=== PATIENT | female | born 1995 | race American Indian/Alaskan Native ===

== ENCOUNTER 2017-07-25 20:30 | Observation (INO) | payer OTHER ==
[2017-07-25 20:30] VITALS: BMI 35.2
[2017-07-25] MEDS ORDERED: Sodium Chloride 0.9% 1,000 ML IV STA (22:31)
--- NOTE | 2017-07-25 22:34 | ED PDOC ---
HPI: Abdomen Time Seen by Provider: 07/25/17 22:27 Chief Complaint (Nursing): Abdominal Pain History Per: Patient Onset/Duration Of Symptoms: Days (4) Current Symptoms Are (Timing): Still Present Severity: Mild Pain Scale Rating Of: 2 Location Of Pain/Discomfort: Epigastric Associated Symptoms: Nausea, Vomiting, Diarrhea Exacerbating Factors: None Alleviating Factors: None Additional Complaint(s): Epigastric abd pain assoc with nausea vomiting and diarrhea x 4 days. Denies fever. No blood in stools. No dysuria or frequency Past Medical History Vital Signs: Last Vital Signs Temp 98.5 F 07/25/17 20:52 Pulse 70 07/25/17 20:52 Resp 16 07/25/17 20:52 BP 128/66 07/25/17 20:52 Pulse Ox 99 07/25/17 22:34 - Medical History PMH: No Chronic Diseases - Surgical History Surgical History: - Family History Family History: States: Hypertension - Home Medications Home Medications: Ambulatory Orders Medication Instructions Recorded Pnv with Ca,No.72/Iron/FA 1 tab PO DAILY #20 tab 02/12/15 [ Vitamin Plus Low Iron] Ibuprofen [Motrin Tab] 600 mg PO Q6 PRN #0 tab 03/07/15 oxyCODONE/Acetaminophen [Percocet 1 tab PO Q6 #10 tab 03/07/15 5/325 mg Tab] Clindamycin [Cleocin] 300 mg PO TID #30 cap 03/19/15 Oxycodone HCl/Acetaminophen 1 tab PO Q6 PRN #10 tab 03/19/15 [Percocet 325 mg-5 mg] Ibuprofen [Motrin] 600 mg PO TID 7 Days tab 01/21/16 Nitrofurantoin Macrocrystals 100 mg PO BID #10 cap 01/21/16 [Macrobid] Dicyclomine [Bentyl] 20 mg PO Q6 PRN #12 tab 06/23/16 Famotidine [Pepcid] 40 mg PO DAILY #10 tab 06/23/16 Ibuprofen [Motrin] 600 mg PO TID PRN #30 tab 06/23/16 Nitrofurantoin Macrocrystals 100 mg PO BID #14 cap 06/23/16 [Macrobid] Ketorolac Tromethamine [Toradol] 10 mg PO BID #10 tab 09/07/16 - Allergies Allergies/Adverse Reactions: Allergies Allergy/AdvReac Type Severity Reaction Status Date / Time No Known Allergies Allergy Verified 09/07/16 18:41 Review of Systems ROS Statement: Except As Marked, All Systems Reviewed And Found Negative Constitutional: Negative for: Fever Gastrointestinal: Positive for: Nausea, Vomiting, Abdominal Pain, Diarrhea Genitourinary Female: Negative for: Dysuria, Frequency Physical Exam - Reviewed Nursing Documentation Reviewed: Yes Vital Signs Reviewed: Yes - Physical Exam Appears: Positive for: Non-toxic, No Acute Distress Head Exam: Positive for: ATRAUMATIC, NORMAL INSPECTION, NORMOCEPHALIC Skin: Positive for: Normal Color, Warm, DRY Eye Exam: Positive for: EOMI, Normal appearance, PERRL ENT: Positive for: Normal ENT Inspection Neck: Positive for: Normal, Painless ROM Cardiovascular/Chest: Positive for: Regular Rate, Rhythm Respiratory: Positive for: CNT, Normal Breath Sounds Gastrointestinal/Abdominal: Positive for: Bowel Sounds, Soft, Tenderness ( Epigastric) Back: Positive for: Normal Inspection Extremity: Positive for: Normal ROM Neurologic/Psych: Positive for: Alert, Oriented - Laboratory Results Result Diagrams: 07/25/17 23:22 07/25/17 23:22 - ECG O2 Sat by Pulse Oximetry: 99 Disposition - Clinical Impression Clinical Impression: Abdominal pain, Anemia, Urinary tract infection - Patient ED Disposition Is Patient to be Admitted: Yes - Disposition Disposition Time: 00:19 Condition: FAIR Forms: [facility] (Romanian) - Pt Status Changed To: Hospital Disposition Of: Inpatient - Admit Certification Admit to Inpatient:: After my assessment, the patient will require hospitalization for at least two midnights. This is because of the severity of symptoms shown, intensity of services needed, and/or the medical risk in this patient being treated as an outpatient. - POA Present On Arrival: None
[2017-07-25 23:26] LABS: BASO # 0.1 K/uL (0.0-0.2); BASO % 2.2 % (0.0-2.0); EOS # 0.1 K/uL (0.0-0.7); HEMOGLOBIN 7.2 g/dL (12.0-16.0); LYMPH # 2.5 K/uL (1.0-4.3); LYMPH % 49.6 % (20.0-40.0); MEAN CELL VOLUME 61.8 fl (81.0-99.0); MEAN CORPUSCULAR HEMOGLOBIN 17.3 pg (27.0-31.0); MEAN CORPUSCULAR HGB CONC 27.9 g/dL (33.0-37.0); MEAN PLATELET VOLUME 8.6 fl (7.2-11.7); MONO # 0.5 K/uL (0.0-0.8); NEUT # 1.9 K/uL (1.8-7.0); NEUT % 37.2 % (50.0-75.0); NRBC % 0.1 % (0.0-0.0); RBC 4.14 Mil/uL (3.80-5.20); RED CELL DISTRIBUTION WIDTH 19.9 % (11.5-14.5)
[2017-07-25 23:38] LABS: ALB/GLOB RATIO 1.2 (1.0-2.1); ALBUMIN 4.3 g/dL (3.5-5.0); ALT/SGPT 29 U/L (9-52); AST/SGOT 28 U/L (14-36); BLOOD UREA NITROGEN 11 mg/dl (7-17); CALCIUM 9.2 mg/dL (8.4-10.2); GFR AFRICAN-AMERICAN > 60; GFR NON-AFRICAN AMERICAN > 60
--- NOTE | 2017-07-26 01:35 | CT ---
EXAM: CT Abdomen and Pelvis Without Intravenous Contrast CLINICAL HISTORY: 21 years old, female; Pain; Abdominal pain; Localized; Lower; Prior surgery; Surgery date: 6+ months; Surgery type: ; Additional info: Anemia lower abd pain TECHNIQUE: Axial computed tomography images of the abdomen and pelvis without intravenous contrast. All CT scans at this facility use one or more dose reduction techniques, viz.: automated exposure control; ma/kV adjustment per patient size (including targeted exams where dose is matched to indication; i.e. head); or iterative reconstruction technique. Coronal and sagittal reformatted images were created and reviewed. COMPARISON: No relevant prior studies available. FINDINGS: Lower thorax: No acute findings. ABDOMEN: Liver: Unremarkable. Gallbladder and bile ducts: Unremarkable. No calcified stones. No ductal dilation. Pancreas: Unremarkable. No ductal dilation. Spleen: Unremarkable. No splenomegaly. Adrenals: Unremarkable. No mass. Kidneys and ureters: Unremarkable. No obstructing stones. No hydronephrosis. Stomach and bowel: There is no wall thickening or pericolonic stranding to suggest colitis. No obstruction. Appendix: The appendix is top normal to mildly prominent measuring 6-7 mm. There is no evidence of adjacent inflammatory stranding. PELVIS: Bladder: Unremarkable. No stones. Reproductive: Unremarkable as visualized. ABDOMEN and PELVIS: Intraperitoneal space: Unremarkable. No free air. No significant fluid collection. Bones/joints: No acute fracture. No dislocation. Soft tissues: Unremarkable. Vasculature: Unremarkable. No abdominal aortic aneurysm. Lymph nodes: Unremarkable. No enlarged lymph nodes. IMPRESSION: No acute intra-abdominal pelvic abnormality.
[2017-07-26] MEDS ORDERED: Influenza Vaccine 18yr & older 0.5 ML/45 MCG SYR IM ONE (16:52)
--- NOTE | 2017-07-26 19:12 | CP.PCM.HP ---
History of Present Illness - History of Present Illness History of Present Illness: 21 yr old F presented to ED with complaint epigastric abdominal pain, nausea, vomiting and diarrhea for 4 days. PMHx includes iron deficiency anemia secondary to menorrhagia with no history of blood transfusion. Denies chest pain, SOB, weakness or dizziness. Patient reports she noticed 1 episode of blood on tissue paper after a bowel movement this week. Denies dysuria or frequency. No personal or family hx of blood disorders or blood clots. LMP: 07/02/17, lasts 1 week (10 saturated sanitary napkins per day) PMD: [place] PMHx: iron deficiency anemia secondary to menorrhagia SurgHx: 02/2015 FMHx: mother is healthy, father is healthy, younger brother has a heart defect SocHx: denies tobacco, occasional Etoh, last marijuana use 3 days ago; lives with mother and 2yr old daughter; works as a hairdresser Medications: see medication reconciliation Allergies: NKDA Present on Admission - Present on Admission Any Indicators Present on Admission: No History of DVT/PE: No History of Uncontrolled Diabetes: No Urinary Catheter: No Decubitus Ulcer Present: No History Surgical Site Infection Following: None Review of Systems - Review of Systems All systems: reviewed and no additional remarkable complaints except (for what is mentioned in the HPI) - Constitutional Constitutional: absent: Chills, Fever, Weight Loss, Weakness - EENT Eyes: absent: Change in Vision Ears: absent: Ear Discharge Nose/Mouth/Throat: absent: Nasal Congestion, Nasal Discharge - Cardiovascular Cardiovascular: absent: Chest Pain, Dyspnea - Respiratory Respiratory: absent: Hemoptysis - Gastrointestinal Gastrointestinal: Abdominal Pain (epigastric), Diarrhea, Nausea, Vomiting - Genitourinary Genitourinary: absent: Difficulty Urinating, Dysuria - Reproductive: Female Reproductive:Female: Heavy Menses (every month) - Musculoskeletal Musculoskeletal: absent: Muscle Weakness - Integumentary Integumentary: absent: Bleeding Lesions - Neurological Neurological: absent: Dizziness, Headaches - Psychiatric Psychiatric: absent: Anxiety - Hematologic/Lymphatic Hematologic: absent: Easy Bleeding, Easy Bruising Past Patient History - Past Medical History & Family History Past Medical History?: No - Past Social History Smoking Status: Never Smoked - CARDIAC Hx Cardiac Disorders: No - MUSCULOSKELETAL/RHEUMATOLOGICAL Hx Falls: No - PSYCHIATRIC Hx Substance Use: Yes (marijuana, 3 months ago) - SURGICAL HISTORY Hx Surgeries: Yes Hx Section: Yes - ANESTHESIA Hx Anesthesia: Yes Hx Anesthesia Reactions: No Hx Malignant Hyperthermia: No Has any member of the family had a problem w/ anesthesia?: No Meds Allergies/Adverse Reactions: Allergies Allergy/AdvReac Type Severity Reaction Status Date / Time No Known Allergies Allergy Verified 09/07/16 18:41 Physical Exam - Constitutional Appears: No Acute Distress (obese) - Head Exam Head Exam: ATRAUMATIC, NORMOCEPHALIC - Eye Exam Eye Exam: EOMI, PERRL Additional comments: pale conjunctiva - ENT Exam ENT Exam: Mucous Membranes Moist - Neck Exam Neck exam: Positive for: Full Rom - Respiratory Exam Respiratory Exam: Clear to Auscultation Bilateral, NORMAL BREATHING PATTERN - Cardiovascular Exam Cardiovascular Exam: REGULAR RHYTHM, +S1, +S2 - GI/Abdominal Exam GI & Abdominal Exam: Normal Bowel Sounds, Soft (obese). absent: Tenderness - Extremities Exam Extremities exam: Positive for: full ROM. Negative for: calf tenderness, pedal edema - Neurological Exam Neurological exam: Alert, CN II-XII Intact, Oriented x3 - Psychiatric Exam Psychiatric exam: Normal Affect, Normal Mood - Skin Skin Exam: Dry, Intact, Warm Results - Vital Signs Recent Vital Signs: Last Vital Signs Temp 98.5 F 07/26/17 18:25 Pulse 63 07/26/17 18:25 Resp 17 07/26/17 18:25 BP 101/64 07/26/17 18:25 Pulse Ox 100 07/26/17 18:25 - Labs Result Diagrams: 07/25/17 23:22 07/25/17 23:22 Labs: Laboratory Results - last 24 hr 07/25/17 07/25/17 07/26/17 23:22 23:22 01:29 WBC 5.0 RBC 4.14 Hgb 7.2 L Hct 25.6 L MCV 61.8 L D MCH 17.3 L MCHC 27.9 L RDW 19.9 H Plt Count 253 MPV 8.6 Neut % (Auto) 37.2 L Lymph % (Auto) 49.6 H [place] % (Auto) 10.0 Eos % (Auto) 1.0 Baso % (Auto) 2.2 H Neut # 1.9 Lymph # 2.5 [place] # 0.5 Eos # 0.1 Baso # 0.1 Sodium 140 Potassium 4.2 Chloride 105 Carbon Dioxide 26 Anion Gap 13 BUN 11 Creatinine 0.8 Est GFR ( Amer) > 60 Est GFR (Non-Af Amer) > 60 Random Glucose 100 Calcium 9.2 Total Bilirubin 0.2 AST 28 ALT 29 Alkaline Phosphatase 38 Total Protein 7.8 Albumin 4.3 Globulin 3.5 Albumin/Globulin Ratio 1.2 Blood Type A POSITIVE Antibody Screen Negative Crossmatch See Detail BBK History Checked Patient has bt Assessment & Plan - Assessment and Plan (Free Text) Assessment: 21 yr old F admitted for abdominal pain and acute on chronic iron deficiency anemia. -admit to med/surg -transfuse 2 units leukocyte reduced pRBC's -NPO now, advance to regular diet as tolerated -ferrous sulfate 325mg PO TID, colace 100mg PO BID -f/u UA, urine culture, CBC, FOBT, CMP -DVT prophylaxis with SCD's - Date & Time Date: 07/26/17 Time: 08:45
[2017-07-27 06:30] LABS: HEMOGLOBIN 10.3 g/dL (12.0-16.0); MEAN CELL VOLUME 66.8 fl (81.0-99.0); MEAN CORPUSCULAR HEMOGLOBIN 19.7 pg (27.0-31.0); MEAN CORPUSCULAR HGB CONC 29.4 g/dL (33.0-37.0); RBC 5.25 Mil/uL (3.80-5.20); RED CELL DISTRIBUTION WIDTH 24.6 % (11.5-14.5); WHITE BLOOD COUNT 6.9 K/uL (4.8-10.8)
[2017-07-27 07:57] VITALS: BP 99/63; PULSE 65; RESP 18; TEMP 98.1; O2SAT 98
[2017-07-27] MEDS ORDERED: Pantoprazole 40 mg EC Tab PO SCH (09:00)
[2017-07-27 11:06] LABS: SQUAMOUS EPITHIAL 14 /hpf (0-5); URINE BACTERIA RARE (<OCC); URINE BILIRUBIN NEGATIVE (NEGATIVE); URINE BLOOD NEGATIVE (NEGATIVE); URINE CLARITY CLOUDY (Clear); URINE COLOR YELLOW (YELLOW); URINE GLUCOSE (UA) NEG (Normal); URINE LEUKOCYTE ESTERASE LARGE Leu/uL (Negative); URINE NITRATE NEGATIVE (NEGATIVE); URINE PROTEIN NEGATIVE (NEGATIVE); URINE UROBILINOGEN 0.2-1.0 mg/dL (0.2-1.0)
--- NOTE | 2017-07-27 22:52 | CP.PCM.DIS ---
Provider - Provider Date of Admission: 07/26/17 00:17 Attending physician: Yohan Dai MD Primary care physician: Dr. Montoya Time Spent in preparation of Discharge (in minutes): 30 Diagnosis - Discharge Diagnosis (1) Iron deficiency anemia Status: Resolved Priority: Low (2) Abdominal discomfort Status: Resolved Priority: Low (3) UTI (urinary tract infection) Status: Acute Priority: Low Hospital Course - Lab Results Lab Results: Micro Results 07/26/17 00:24 Urine,Clean Catch Urine Culture - Final 10-50,000 CFU/ML. MULTIPLE SPECIES. PROBABLE CONTAMINATION. Most Recent Lab Values WBC 6.9 K/uL (4.8-10.8) 07/27/17 06:05 RBC 5.25 Mil/uL (3.80-5.20) H 07/27/17 06:05 Hgb 10.3 g/dL (12.0-16.0) L D 07/27/17 06:05 Hct 35.1 % (34.0-47.0) 07/27/17 06:05 MCV 66.8 fl (81.0-99.0) L D 07/27/17 06:05 MCH 19.7 pg (27.0-31.0) L 07/27/17 06:05 MCHC 29.4 g/dL (33.0-37.0) L 07/27/17 06:05 RDW 24.6 % (11.5-14.5) H 07/27/17 06:05 Plt Count 248 K/uL (130-400) 07/27/17 06:05 MPV 8.6 fl (7.2-11.7) 07/25/17 23:22 Neut % (Auto) 37.2 % (50.0-75.0) L 07/25/17 23:22 Lymph % (Auto) 49.6 % (20.0-40.0) H 07/25/17 23:22 [place] % (Auto) 10.0 % (0.0-10.0) 07/25/17 23:22 Eos % (Auto) 1.0 % (0.0-4.0) 07/25/17 23:22 Baso % (Auto) 2.2 % (0.0-2.0) H 07/25/17 23:22 Neut # 1.9 K/uL (1.8-7.0) 07/25/17 23:22 Lymph # 2.5 K/uL (1.0-4.3) 07/25/17 23:22 [place] # 0.5 K/uL (0.0-0.8) 07/25/17 23:22 Eos # 0.1 K/uL (0.0-0.7) 07/25/17 23:22 Baso # 0.1 K/uL (0.0-0.2) 07/25/17 23:22 Sodium 140 mmol/l (132-148) 07/25/17 23:22 Potassium 4.2 MMOL/L (3.6-5.0) 07/25/17 23:22 Chloride 105 mmol/L (98-107) 07/25/17 23:22 Carbon Dioxide 26 mmol/L (22-30) 07/25/17 23:22 Anion Gap 13 (10-20) 07/25/17 23:22 BUN 11 mg/dl (7-17) 07/25/17 23:22 Creatinine 0.8 mg/dl (0.7-1.2) 07/25/17 23:22 Est GFR ( Amer) > 60 07/25/17 23:22 Est GFR (Non-Af Amer) > 60 07/25/17 23:22 Random Glucose 100 mg/dL (65-105) 07/25/17 23:22 Calcium 9.2 mg/dL (8.4-10.2) 07/25/17 23:22 Total Bilirubin 0.2 mg/dl (0.2-1.3) 07/25/17 23:22 AST 28 U/L (14-36) 07/25/17 23:22 ALT 29 U/L (9-52) 07/25/17 23:22 Alkaline Phosphatase 38 U/L (38-126) 07/25/17 23:22 Total Protein 7.8 G/DL (6.3-8.2) 07/25/17 23:22 Albumin 4.3 g/dL (3.5-5.0) 07/25/17 23:22 Globulin 3.5 gm/dL (2.2-3.9) 07/25/17 23:22 Albumin/Globulin Ratio 1.2 (1.0-2.1) 07/25/17 23:22 Urine Color Yellow (YELLOW) 07/27/17 10:50 Urine Clarity Cloudy (Clear) 07/27/17 10:50 Urine pH 7.0 (5.0-8.0) 07/27/17 10:50 Ur Specific [place] 1.014 (1.003-1.030) 07/27/17 10:50 Urine Protein Negative mg/dL (NEGATIVE) 07/27/17 10:50 Urine Glucose (UA) Neg mg/dL (Normal) 07/27/17 10:50 Urine Ketones Negative mg/dL (NEGATIVE) 07/27/17 10:50 Urine Blood Negative (NEGATIVE) 07/27/17 10:50 Urine Nitrate Negative (NEGATIVE) 07/27/17 10:50 Urine Bilirubin Negative (NEGATIVE) 07/27/17 10:50 Urine Urobilinogen 0.2-1.0 mg/dL (0.2-1.0) 07/27/17 10:50 Ur Leukocyte Esterase Large [place]/uL (Negative) 07/27/17 10:50 Urine RBC (Auto) 3 /hpf (0-3) 07/27/17 10:50 Urine Microscopic WBC 44 /hpf (0-5) H 07/27/17 10:50 Ur Squamous Epith Cells 14 /hpf (0-5) H 07/27/17 10:50 Urine Bacteria Rare (<OCC) 07/27/17 10:50 Blood Type A POSITIVE 07/26/17 01:29 Antibody Screen Negative 07/26/17 01:29 Crossmatch See Detail 07/26/17 01:29 BBK History Checked Patient has bt 07/26/17 01:29 - Hospital Course Hospital Course: 21 yr old F admitted for abdominal pain, acute on chronic iron deficiency anemia and found to have a UTI. Patients symptoms improved s/p IVF, transfusion of 2 units pRBC's and IV antibiotics. Patient is medically stable for discharge with instructions to complete all antibiotics and follow up with your primary care doctor within 7-10 days. - Date & Time of H&P Date of H&P: 07/26/17 Time of H&P: 08:45 Discharge Exam - Head Exam Head Exam: ATRAUMATIC, NORMOCEPHALIC - Eye Exam Eye Exam: EOMI, PERRL Additional comments: pale conjunctiva - ENT Exam ENT Exam: Mucous Membranes Moist - Neck Exam Neck exam: Full Rom - Respiratory Exam Respiratory Exam: Clear to PA & Lateral, NORMAL BREATHING PATTERN - GI/Abdominal Exam GI & Abdominal Exam: Normal Bowel Sounds, Soft. absent: Guarding, Tenderness - Extremities Exam Extremities exam: full ROM - Neurological Exam Neurological exam: Alert, CN II-XII Intact, Oriented x3 - Psychiatric Exam Psychiatric exam: Normal Affect, Normal Mood - Skin Skin Exam: Dry, Normal Color, Warm Discharge Plan - Discharge Medications Prescriptions: Ciprofloxacin [Cipro] 500 mg PO Q12 #7 tab - Follow Up Plan Condition: FAIR Disposition: HOME/ ROUTINE Instructions: Urinary Tract Infection in Women (DC), Iron Rich Diet (DC), Anemia (DC), Urinary Tract Infection in Men (DC), Dysuria (GEN) Additional Instructions: Complete all antibiotics. Follow up with your primary MD 7-10 days. Referrals: Geovani Sykes MD [Family Provider] - Clinical Quality Measures - Date & Time of Discharge Summary Date of Discharge Summary: 07/27/17 Time of Discharge Summary: 12:45
== END 2017-07-27 14:19 | disposition home or self-care (01) ==
LOC: H.ER 20:30 → H.ERHOLD 07-26 00:17 → INTOOBSV 07-26 00:17 → H.MEDSURG1 07-26 10:26
PROVIDERS: ADMIT Internal Medicine; ATTEND Internal Medicine
DX: D50.9 Iron deficiency anemia, unspecified (principal); N39.0 Urinary tract infection, site not specified; N92.0 Excessive and frequent menstruation with regular cycle; Z23 Encounter for immunization
CPT/HCPCS: 36415; 36430; 74176; 80053; 81003; 81025; 85025; 85027; 86850; 86900; 86920; 87086; 90471; 96374; 96375; 99282; G0378; J2405; J7040; P9051; Q2035

== ENCOUNTER 2018-02-15 00:11 | Emergency (ER) | payer MEDICAID ==
[2018-02-15 00:12] VITALS: BMI 35.2
[2018-02-15 00:19] VITALS: BP 111/73; PULSE 70; RESP 16; TEMP 98.5; O2SAT 98
--- NOTE | 2018-02-15 02:01 | ED PDOC ---
Lower Extremity Pain/Injury Time Seen by Provider: 02/15/18 00:56 Chief Complaint (Nursing): Lower Extremity Problem/Injury Chief Complaint (Provider): left foot pain History Per: Patient History/Exam Limitations: no limitations Onset/Duration Of Symptoms: Hrs Current Symptoms Are (Timing): Still Present Additional Complaint(s): 22 y/o female presents for evaluation of left foot pain x 10 hours. Patient states she fell off a chair and after standing up noted pain to bottom of left foot. Denies numbness/weakness left lower extremity, limitation of movement. Past Medical History Reviewed: Historical Data, Nursing Documentation, Vital Signs Vital Signs: Last Vital Signs Temp 98.5 F 02/15/18 00:17 Pulse 70 02/15/18 00:17 Resp 16 02/15/18 00:17 BP 111/73 02/15/18 00:17 Pulse Ox 98 02/15/18 00:17 - Medical History PMH: No Chronic Diseases - Surgical History Surgical History: - Family History Family History: States: Hypertension - Living Arrangements Living Arrangements: With Family - Home Medications Home Medications: Ambulatory Orders Medication Instructions Recorded Ciprofloxacin [Cipro] 500 mg PO Q12 #7 tab 07/27/17 Docusate [Colace] 100 mg PO BID cap 07/27/17 Ferrous Sulfate [Feosol] 325 mg PO TID tab 07/27/17 Ibuprofen [Motrin Tab] 1 tab PO Q6 PRN #20 tab 02/15/18 - Allergies Allergies/Adverse Reactions: Allergies Allergy/AdvReac Type Severity Reaction Status Date / Time No Known Allergies Allergy Verified 02/15/18 00:16 Review of Systems ROS Statement: Except As Marked, All Systems Reviewed And Found Negative Musculoskeletal: Positive for: Foot Pain (left) Physical Exam - Reviewed Nursing Documentation Reviewed: Yes Vital Signs Reviewed: Yes - Physical Exam Appears: Positive for: Well, Non-toxic, No Acute Distress Extremity: Positive for: Normal ROM, Tenderness (plantar left forefoot; no erythema, edema, deformity noted) Neurologic/Psych: Positive for: Alert, Oriented. Negative for: Motor/Sensory Deficits - ECG O2 Sat by Pulse Oximetry: 98 - Other Rad xray left foot X-Ray: Viewed By Me X-Ray Interpretation: no acute findings - Progress ED Course And Treament: xray, ibuprofen Patient educated on findings, placed in surgical shoe for support Rx ibuprofen provided Advised RICE Follow up podiatry for persistent symptoms REturn precautions given Disposition - Clinical Impression Clinical Impression: Foot pain, left - Patient ED Disposition Is Patient to be Admitted: No Counseled Patient/Family Regarding: Studies Performed, Diagnosis, Need For Followup, Rx Given - Disposition Referrals: Janes Montoya MD [Primary Care Provider] - [facility] [Outside] Disposition: Routine/Home Disposition Time: 03:24 Condition: IMPROVED Prescriptions: Ibuprofen [Motrin Tab] 1 tab PO Q6 PRN #20 tab PRN Reason: Pain, Moderate (4-7) Instructions: Muscle and Bone Pain (DC)
--- NOTE | 2018-02-15 08:32 | RAD ---
Date of service: 02/15/2018 PROCEDURE: Left Foot Radiographs. HISTORY: fall, pain COMPARISON: None. FINDINGS: BONES: Normal. No fracture. JOINTS: Normal. SOFT TISSUES: Normal. OTHER FINDINGS: None. IMPRESSION: Normal left foot radiographs.
== END 2018-02-15 03:50 | disposition home or self-care (01) ==
LOC: H.ER 00:11
DX: M79.672 Pain in left foot (principal); W07.XXXA Fall from chair, initial encounter

== ENCOUNTER 2018-04-21 04:16 | Emergency (ER) | payer MEDICAID ==
[2018-04-21 04:16] VITALS: BMI 35.2
[2018-04-21 04:39] VITALS: BP 137/89; PULSE 89; RESP 20; TEMP 99.6; O2SAT 99
[2018-04-21] MEDS ORDERED: Oxycodone/Acetaminophen 5/325 mg Tab PO STA (05:11)
--- NOTE | 2018-04-22 13:51 | ED PDOC ---
HPI: Dental Pain/Injury Time Seen by Provider: 04/21/18 05:07 Chief Complaint (Nursing): Dental Pain History Per: Patient Onset/Duration Of Symptoms: Days (1) Current Symptoms Are (Timing): Still Present Severity: Severe Pain Scale Rating Of: 8 Quality: Dull Past Medical History Reviewed: Historical Data, Nursing Documentation, Vital Signs Vital Signs: Last Vital Signs Temp 99.6 F 04/21/18 04:38 Pulse 89 04/21/18 04:38 Resp 20 04/21/18 04:38 BP 137/89 04/21/18 04:38 Pulse Ox 99 04/21/18 04:38 - Medical History PMH: No Chronic Diseases - Surgical History Surgical History: - Family History Family History: States: Hypertension - Home Medications Home Medications: Ambulatory Orders Medication Instructions Recorded Ciprofloxacin [Cipro] 500 mg PO Q12 #7 tab 07/27/17 Docusate [Colace] 100 mg PO BID cap 07/27/17 Ferrous Sulfate [Feosol] 325 mg PO TID tab 07/27/17 Ibuprofen [Motrin Tab] 1 tab PO Q6 PRN #20 tab 02/15/18 Amoxicillin 500 mg PO TID #21 tablet 04/21/18 - Allergies Allergies/Adverse Reactions: Allergies Allergy/AdvReac Type Severity Reaction Status Date / Time No Known Allergies Allergy Verified 04/21/18 04:39 Review of Systems ROS Statement: Except As Marked, All Systems Reviewed And Found Negative Physical Exam - Reviewed Nursing Documentation Reviewed: Yes Vital Signs Reviewed: Yes - Physical Exam Appears: Positive for: Uncomfortable Head Exam: Positive for: ATRAUMATIC, NORMAL INSPECTION Skin: Positive for: Warm, Dry Eye Exam: Positive for: EOMI ENT: Positive for: Normal ENT Inspection, Other (Left upper last molar n15 with cavity, tender) Cardiovascular/Chest: Positive for: Regular Rate, Rhythm Extremity: Positive for: Normal ROM Neurologic/Psych: Positive for: Alert, Oriented - ECG O2 Sat by Pulse Oximetry: 99 Disposition - Clinical Impression Clinical Impression: Dental caries, Toothache - Patient ED Disposition Is Patient to be Admitted: No Doctor Will See Patient In The: Office Counseled Patient/Family Regarding: Studies Performed, Diagnosis, Need For Followup - [facility] Disposition Time: 06:00 Condition: GOOD Additional Instructions: TOÑITO FORTE, thank you for letting us take care of you today. Your provider was Janis Martinez MD and you were treated for TOOTH PAIN. The emergency medical care you received today was directed at your acute symptoms. If you were prescribed any medication, please fill it and take as directed. It may take several days for your symptoms to resolve. Return to the Emergency Department if your symptoms worsen, do not improve, or if you have any other problems. Please contact your doctor or call one of the physicians/clinics you have been referred to that are listed on the Patient Visit Information form that is included in your discharge packet. Bring any paperwork you were given at discharge with you along with any medications you are taking to your follow up visit. Our treatment cannot replace ongoing medical care by a primary care provider outside of the emergency department. Thank you for allowing the [email or web address] team to be part of your care today. If you had an X-Ray or CT scan: A Radiologist will review the ED reading if any change in treatment is needed we will contact you. If you had a blood, urine, or wound culture: It will take several days for the results, if any change in treatment is needed we will contact you. If you had an STI test: It will take 48 hours for the results. Please call after 1 week if you have not heard back. Prescriptions: Amoxicillin 500 mg PO TID #21 tablet Instructions: Dental Pain (DC)
== END 2018-04-21 05:55 | disposition home or self-care (01) ==
LOC: H.ER 04:16
DX: K02.9 Dental caries, unspecified (principal)

== ENCOUNTER 2018-07-05 08:41 | Emergency (ER) | payer MEDICAID ==
[2018-07-05 08:47] VITALS: BMI 33.6
[2018-07-05 08:49] VITALS: O2SAT 100
[2018-07-05] MEDS ORDERED: Sodium Chloride 0.9% 1,000 ML IV STA (09:45)
[2018-07-05 10:27] LABS: BASO # 0.1 K/uL (0.0-0.2); BASO % 1.5 % (0.0-2.0); EOS # 0.1 K/uL (0.0-0.7); EOS % 1.2 % (0.0-4.0); HEMOGLOBIN 8.7 g/dL (12.0-16.0); LYMPH % 37.5 % (20.0-40.0); MEAN CELL VOLUME 67.5 fl (81.0-99.0); MEAN CORPUSCULAR HEMOGLOBIN 19.8 pg (27.0-31.0); MEAN CORPUSCULAR HGB CONC 29.3 g/dL (33.0-37.0); MEAN PLATELET VOLUME 9.1 fl (7.2-11.7); MONO # 0.5 K/uL (0.0-0.8); NEUT # 2.7 K/uL (1.8-7.0); NEUT % 49.8 % (50.0-75.0); RBC 4.38 Mil/uL (3.80-5.20); RED CELL DISTRIBUTION WIDTH 19.6 % (11.5-14.5); WHITE BLOOD COUNT 5.5 K/uL (4.8-10.8)
[2018-07-05 10:38] LABS: ALB/GLOB RATIO 1.1 (1.0-2.1); ALBUMIN 4.4 g/dL (3.5-5.0); ALT/SGPT 18 U/L (9-52); AST/SGOT 23 U/L (14-36); CALCIUM 9.5 mg/dL (8.4-10.2); GFR NON-AFRICAN AMERICAN > 60; LIPASE 42 U/L (23-300)
[2018-07-05 10:55] LABS: BLOOD UREA NITROGEN 12 mg/dl (7-17)
--- NOTE | 2018-07-05 12:15 | ED PDOC ---
HPI: Abdomen Time Seen by Provider: 07/05/18 09:38 Chief Complaint (Nursing): Abdominal Pain Chief Complaint (Provider): pelvic pain, diarrhea History Per: Patient History/Exam Limitations: no limitations Onset/Duration Of Symptoms: Days (3-4), Intermittent Episodes, Gradual Location Of Pain/Discomfort: LLQ, Other (pelvic) Associated Symptoms: Diarrhea, Loss Of Appetite. denies: Nausea, Vomiting Exacerbating Factors: None Alleviating Factors: None Additional Complaint(s): 22yo female c/o L>R pelvic pain radiating to back associated with loose stools, denies vaginal bleeding pain or discharge, denies fever, urinary symptoms or weakness. LMP Jun 03, states current menses 3 days late. Unsure if she's . Past Medical History Reviewed: Historical Data, Nursing Documentation, Vital Signs Vital Signs: Last Vital Signs Temp 98.5 F 07/05/18 08:47 Pulse 71 07/05/18 08:47 Resp 20 07/05/18 08:47 BP 106/71 07/05/18 08:47 Pulse Ox 100 07/05/18 08:47 - Medical History PMH: No Chronic Diseases - Surgical History Surgical History: - Family History Family History: States: Hypertension - Living Arrangements Living Arrangements: With Family - Home Medications Home Medications: Ambulatory Orders Medication Instructions Recorded Ciprofloxacin [Cipro] 500 mg PO Q12 #7 tab 07/27/17 Docusate [Colace] 100 mg PO BID cap 07/27/17 Ferrous Sulfate [Feosol] 325 mg PO TID tab 07/27/17 Ibuprofen [Motrin Tab] 1 tab PO Q6 PRN #20 tab 02/15/18 Amoxicillin 500 mg PO TID #21 tablet 04/21/18 Ibuprofen [Motrin Tab] 600 mg PO Q6 PRN #15 tab 07/05/18 - Allergies Allergies/Adverse Reactions: Allergies Allergy/AdvReac Type Severity Reaction Status Date / Time No Known Allergies Allergy Verified 04/21/18 04:39 Review of Systems Constitutional: Negative for: Fever Cardiovascular: Negative for: Chest Pain Respiratory: Negative for: Shortness of Breath Gastrointestinal: Positive for: Diarrhea. Negative for: Nausea, Abdominal Pain Genitourinary Female: Positive for: Pelvic Pain. Negative for: Dysuria, Hematuria Musculoskeletal: Positive for: Back Pain. Negative for: Neck Pain Skin: Negative for: Rash, Lesions, Jaundice Neurological: Negative for: Weakness, Numbness, Headache Psych: Negative for: Suicidal ideation Physical Exam - Reviewed Nursing Documentation Reviewed: Yes Vital Signs Reviewed: Yes - Physical Exam Appears: Positive for: Well, Non-toxic Head Exam: Positive for: ATRAUMATIC Skin: Positive for: Normal Color, Warm Neck: Positive for: Painless ROM Cardiovascular/Chest: Positive for: Regular Rate, Rhythm Respiratory: Negative for: Respiratory Distress Gastrointestinal/Abdominal: Positive for: Tenderness (minimal L>R lower abd tenderness). Negative for: Guarding, Rebound, Asicites Extremity: Positive for: Normal ROM Neurologic/Psych: Positive for: Alert, Oriented. Negative for: Motor/Sensory Deficits - Laboratory Results Result Diagrams: 07/05/18 10:15 07/05/18 10:15 Lab Results: Total Bilirubin 0.2 mg/dl (0.2-1.3) 07/05/18 10:15 AST 23 U/L (14-36) 07/05/18 10:15 ALT 18 U/L (9-52) 07/05/18 10:15 Alkaline Phosphatase 49 U/L (38-126) 07/05/18 10:15 Total Protein 8.3 G/DL (6.3-8.2) H 07/05/18 10:15 Albumin 4.4 g/dL (3.5-5.0) 07/05/18 10:15 Globulin 3.9 gm/dL (2.2-3.9) 07/05/18 10:15 Albumin/Globulin Ratio 1.1 (1.0-2.1) 07/05/18 10:15 Lipase 42 U/L (23-300) 07/05/18 10:15 Urine POC: Negative - ECG O2 Sat by Pulse Oximetry: 100 Pulse Ox Interpretation: Normal Medical Decision Making Medical Decision Making: Accession No. : [id number] Patient Name / ID : JANN SIBLEY / [id number] Exam Date : 07/05/2018 12:31:44 ( Approved ) Study Comment : Sex / Age : F / 22Y Creator : Debi Gordon MD Dictator : Debi Gordon MD Advertising Internship : Market Research Worker : Debi Gordon MD Approver2 : Report Date : 07/05/2018 15:19:33 My Comment : Date of service: 07/05/2018 HISTORY: Pelvic pain, anemia COMPARISON: None available. TECHNIQUE: Transabdominal and transvaginal pelvic ultrasound was performed. FINDINGS: UTERUS: Measures 10.2 x 7.1 x 5.2 cm. Normal in size and appearance. No fibroid or other mass lesion seen. ENDOMETRIUM: Measures 9.0 mm in diameter. Heterogeneous however grossly normal in appearance. CERVIX: There are nabothian cysts in the cervix. RIGHT OVARY: Measures 6.6 x 4.7 x 3.7 cm. No solid mass. Normal flow. There is a 4.1 x 3.9 x 3.4 cm complicated/hemorrhagic cyst. LEFT OVARY: Measures 6.9 x 3.5 x 2.9 cm. No solid mass. Normal flow. There is a 3.0 x 3.7 x 3.3 cm septated cyst. FREE FLUID: No significant free fluid noted. OTHER FINDINGS: None. IMPRESSION: 1. Heterogeneous central endometrial echo complex demonstrates normal thickness. No evidence for polyp. 2. 4.1 x 3.9 x 3.4 cm complicated/hemorrhagic cyst in the right ovary. No evidence for torsion. 3. 3.0 x 3.7 x 3.3 cm septated cyst in the left ovary. Follow-up ultrasound in 3-6 month interval is recommended to assess stabi lity/resolution of this probably benign ovarian cysts. --------- patient stated felt better and tolerated PO in ED She left ED prior to being given discharge instructions, per RN IV was still in, police called to inform to return to ER for safe IV removal and instructions. Attempt made x2 to call patient no answer, no voicemail Disposition - Clinical Impression Clinical Impression: Hemorrhagic ovarian cyst, Pelvic pain - Patient ED Disposition Is Patient to be Admitted: No - Disposition [facility]errals[facility]] Disposition Time: 14:50 Condition: STABLE Additional Instructions: Followup with [facility] doctor for further testing on your ovarian cysts. You may even need surgery. Return to ER for any worse or new symptoms. Discuss your anemia with your primary doctor. Prescriptions: Ibuprofen [Motrin Tab] 600 mg PO Q6 PRN #15 tab PRN Reason: Pain, Moderate (4-7) Instructions: Ovarian Cysts, Acute Pelvic Pain (DC) Forms: [facility] (Brazilian)
--- NOTE | 2018-07-05 15:23 | US ---
Date of service: 07/05/2018 HISTORY: Pelvic pain, anemia COMPARISON: None available. TECHNIQUE: Transabdominal and transvaginal pelvic ultrasound was performed. FINDINGS: UTERUS: Measures 10.2 x 7.1 x 5.2 cm. Normal in size and appearance. No fibroid or other mass lesion seen. ENDOMETRIUM: Measures 9.0 mm in diameter. Heterogeneous however grossly normal in appearance. CERVIX: There are nabothian cysts in the cervix. RIGHT OVARY: Measures 6.6 x 4.7 x 3.7 cm. No solid mass. Normal flow. There is a 4.1 x 3.9 x 3.4 cm complicated/hemorrhagic cyst. LEFT OVARY: Measures 6.9 x 3.5 x 2.9 cm. No solid mass. Normal flow. There is a 3.0 x 3.7 x 3.3 cm septated cyst. FREE FLUID: No significant free fluid noted. OTHER FINDINGS: None. IMPRESSION: 1. Heterogeneous central endometrial echo complex demonstrates normal thickness. No evidence for polyp. 2. 4.1 x 3.9 x 3.4 cm complicated/hemorrhagic cyst in the right ovary. No evidence for torsion. 3. 3.0 x 3.7 x 3.3 cm septated cyst in the left ovary. Follow-up ultrasound in 3-6 month interval is recommended to assess stability/resolution of this probably benign ovarian cysts.
[2018-07-05 16:02] VITALS: RESP 18
[2018-07-05 16:05] VITALS: BP 119/74; PULSE 80; TEMP 98.4
== END 2018-07-05 16:00 | disposition home or self-care (01) ==
LOC: H.ER 08:41
DX: R10.2 Pelvic and perineal pain (principal); N83.291 Other ovarian cyst, right side; N83.292 Other ovarian cyst, left side; D64.9 Anemia, unspecified
CPT/HCPCS: 76830; 76856; 80053; 81025; 83690; 85025; 96360; 99284; J7030

== ENCOUNTER 2018-07-06 08:41 | Emergency (ER) | payer MEDICAID ==
[2018-07-06 08:41] VITALS: BMI 33.6
--- NOTE | 2018-07-06 09:44 | ED PDOC ---
HPI: General Adult Time Seen by Provider: 07/06/18 09:13 Chief Complaint (Nursing): Abnormal Labs Chief Complaint (Provider): Abnormal Labs History Per: Patient History/Exam Limitations: no limitations Onset/Duration Of Symptoms: Days Current Symptoms Are (Timing): Gone Now Additional Complaint(s): 22 year old female with no past medical history who is presenting to the ED for ultrasound results. Patient states that she was in the ED yesterday for abdominal pain but left AMA without results. She states that she has no pain today and only complains of a mild headache. She denies any vaginal bleeding or abdominal pain. PMD: Dr. Borrero Past Medical History Reviewed: Historical Data, Nursing Documentation, Vital Signs Vital Signs: Last Vital Signs Temp 98.5 F 07/06/18 08:46 Pulse 70 07/06/18 08:46 Resp 18 07/06/18 08:46 BP 112/72 07/06/18 08:46 Pulse Ox 99 07/06/18 08:46 - Medical History PMH: No Chronic Diseases - Surgical History Surgical History: - Family History Family History: States: Hypertension - Social History Current smoker - smoking cessation education provided: No Alcohol: None Drugs: Cannabis - Home Medications Home Medications: Ambulatory Orders Medication Instructions Recorded RX: Ciprofloxacin [Cipro] 500 mg PO Q12 #7 tab 07/27/17 RX: Docusate [Colace] 100 mg PO BID cap 07/27/17 RX: Ferrous Sulfate [Feosol] 325 mg PO TID tab 07/27/17 RX: Ibuprofen [Motrin Tab] 1 tab PO Q6 PRN #20 tab 02/15/18 RX: Amoxicillin 500 mg PO TID #21 tablet 04/21/18 RX: Ibuprofen [Motrin Tab] 600 mg PO Q6 PRN #15 tab 07/05/18 RX: Ferrous Sulfate 325 mg PO DAILY #14 tablet 07/06/18 - Allergies Allergies/Adverse Reactions: Allergies Allergy/AdvReac Type Severity Reaction Status Date / Time No Known Allergies Allergy Verified 04/21/18 04:39 Review of Systems ROS Statement: Except As Marked, All Systems Reviewed And Found Negative Gastrointestinal: Negative for: Abdominal Pain Genitourinary Female: Negative for: Vaginal Discharge Neurological: Positive for: Headache (mild ) Physical Exam - Reviewed Nursing Documentation Reviewed: Yes Vital Signs Reviewed: Yes - Physical Exam Appears: Positive for: Well, Non-toxic, No Acute Distress Head Exam: Positive for: ATRAUMATIC, NORMAL INSPECTION, NORMOCEPHALIC Skin: Positive for: Normal Color, Warm, DRY Cardiovascular/Chest: Positive for: Regular Rate, Rhythm. Negative for: Murmur Respiratory: Positive for: Normal Breath Sounds. Negative for: Respiratory Distress Gastrointestinal/Abdominal: Positive for: Normal Exam, Soft. Negative for: Tenderness, Mass, Distended, Guarding, Rebound Back: Positive for: Normal Inspection Extremity: Positive for: Normal ROM. Negative for: Deformity, Swelling Neurologic/Psych: Positive for: Alert, Oriented. Negative for: Motor/Sensory Deficits - ECG O2 Sat by Pulse Oximetry: 99 (RA) Pulse Ox Interpretation: Normal Medical Decision Making Medical Decision Making: Time: 9:40 Ultrasound Results from yesterday: FINDINGS: UTERUS: Measures 10.2 x 7.1 x 5.2 cm. Normal in size and appearance. No fibroid or other mass lesion seen. ENDOMETRIUM: Measures 9.0 mm in diameter. Heterogeneous however grossly normal in appearance. CERVIX: There are nabothian cysts in the cervix. RIGHT OVARY: Measures 6.6 x 4.7 x 3.7 cm. No solid mass. Normal flow. There is a 4.1 x 3.9 x 3.4 cm complicated/hemorrhagic cyst. LEFT OVARY: Measures 6.9 x 3.5 x 2.9 cm. No solid mass. Normal flow. There is a 3.0 x 3.7 x 3.3 cm septated cyst. FREE FLUID: No significant free fluid noted. OTHER FINDINGS: None. IMPRESSION: 1. Heterogeneous central endometrial echo complex demonstrates normal thickness. No evidence for polyp. 2. 4.1 x 3.9 x 3.4 cm complicated/hemorrhagic cyst in the right ovary. No evidence for torsion. 3. 3.0 x 3.7 x 3.3 cm septated cyst in the left ovary. Follow-up ultrasound in 3-6 month interval is recommended to assess stability/resolution of this probably benign ovarian cysts. 9:50 Patient given motrin for pain and informed of ultrasound results. She will be discharged home with referral to women[facility] clinic. patient will also be given a prescription for Iron and provider explained to patient that her anemia is likely due to hemorrhagic cyst. Scribe Attestation: Documented by Jihan Pressley, acting as a scribe for Rajendra Presley MD. Provider Scribe Attestation: All medical record entries made by the Scribe were at my direction and personally dictated by me. I have reviewed the chart and agree that the record accurately reflects my personal performance of the history, physical exam, medical decision making, and the department course for this patient. I have also personally directed, reviewed, and agree with the discharge instructions and disposition. Disposition - Clinical Impression Clinical Impression: Hemorrhagic ovarian cyst, Anemia - Patient ED Disposition Is Patient to be Admitted: No Counseled Patient/Family Regarding: Studies Performed, Diagnosis, Need For Followup - Disposition Referrals: [facility] [Outside] [facility] [[facility]] Disposition: Routine/Home Disposition Time: 10:00 Condition: IMPROVED Additional Instructions: follow up with sleeping car service attendant this week to follow the ovarian cysts take motrin for pain as needed return to the ED with any worsening or concerning symptoms Prescriptions: RX: Ferrous Sulfate 325 mg PO DAILY #14 tablet Instructions: Ovarian Cysts, Ovarian Cyst (DC) Forms: [employer] (Bengali)
[2018-07-06 10:14] VITALS: BP 110/78; PULSE 78; RESP 19; TEMP 97
[2018-07-12 02:18] VITALS: O2SAT 99
== END 2018-07-06 10:14 | disposition home or self-care (01) ==
LOC: H.ER 08:41
DX: N83.201 Unspecified ovarian cyst, right side (principal); N83.202 Unspecified ovarian cyst, left side

== ENCOUNTER 2018-09-29 08:49 | Emergency (ER) | payer MEDICAID ==
[2018-09-29 08:51] VITALS: BMI 34.1
[2018-09-29 08:53] VITALS: RESP 16; O2SAT 98
[2018-09-29] MEDS ORDERED: Sodium Chloride 0.9% 1,000 ML IV STA (09:24)
--- NOTE | 2018-09-29 09:27 | ED PDOC ---
HPI: General Adult Time Seen by Provider: 09/29/18 09:18 Chief Complaint (Nursing): GI Problem Chief Complaint (Provider): flu like symptoms History Per: Patient History/Exam Limitations: no limitations Onset/Duration Of Symptoms: Days (3-4), Gradual Current Symptoms Are (Timing): Still Present Severity: Moderate Additional Complaint(s): 23yo female c/o body aches and malaise, mild cough and sore throat, headache, ongoing and worsening for 3-4 days since she walked from [place] to [place]. Denies focal pain, trauma/falls, fever or vomiting/diarrhea. Unsure if she got a flu shot this year. Past Medical History Reviewed: Historical Data, Nursing Documentation, Vital Signs Vital Signs: Last Vital Signs Temp 98.4 F 09/29/18 08:51 Pulse 71 09/29/18 08:51 Resp 16 09/29/18 08:51 BP 104/63 09/29/18 08:51 Pulse Ox 98 09/29/18 08:51 - Medical History PMH: Anemia - Surgical History Surgical History: - Family History Family History: States: Hypertension - Living Arrangements Living Arrangements: With Family - Home Medications Home Medications: Ambulatory Orders Medication Instructions Recorded Ferrous Sulfate [Feosol] 325 mg PO TID tab 07/27/17 - Allergies Allergies/Adverse Reactions: Allergies Allergy/AdvReac Type Severity Reaction Status Date / Time No Known Allergies Allergy Verified 04/21/18 04:39 Review of Systems ROS Statement: Except As Marked, All Systems Reviewed And Found Negative Constitutional: Positive for: Chills, Weakness, Malaise. Negative for: Fever Eyes: Negative for: Conjunctivae Inflammation ENT: Positive for: Throat Pain. Negative for: Ear Pain Cardiovascular: Negative for: Chest Pain, Palpitations Respiratory: Positive for: Cough. Negative for: Shortness of Breath Gastrointestinal: Positive for: Nausea. Negative for: Vomiting, Abdominal Pain Genitourinary Female: Negative for: Dysuria, Hematuria Musculoskeletal: Positive for: Back Pain, Other (myalgias). Negative for: Neck Pain Skin: Negative for: Rash, Lesions, Jaundice Neurological: Positive for: Headache, Dizziness. Negative for: Weakness, Numbness Psych: Negative for: Suicidal ideation Physical Exam - Reviewed Nursing Documentation Reviewed: Yes Vital Signs Reviewed: Yes - Physical Exam Appears: Positive for: Well, Non-toxic, No Acute Distress Head Exam: Positive for: ATRAUMATIC, NORMAL INSPECTION, NORMOCEPHALIC Skin: Positive for: Normal Color, Warm, DRY Eye Exam: Positive for: EOMI, Normal appearance, PERRL ENT: Positive for: Normal ENT Inspection Neck: Positive for: Normal, Painless ROM Cardiovascular/Chest: Positive for: Regular Rate, Rhythm Respiratory: Positive for: CNT, Normal Breath Sounds Gastrointestinal/Abdominal: Positive for: Normal Exam, Soft Back: Positive for: Normal Inspection Extremity: Positive for: Normal ROM Neurological/Psych: Positive for: Awake, Alert, Normal Tone - ECG O2 Sat by Pulse Oximetry: 98 Medical Decision Making Medical Decision Making: workup for flu like symptoms, given initiated after physical exertion check CK and UA, also flu swab, basic labs and initiate IVF and toradol after preg neg. Disposition - Clinical Impression Clinical Impression: Flu-like symptoms - Patient ED Disposition Is Patient to be Admitted: No - Disposition Forms: [employer] [facility] (Pakistani)
[2018-09-29 09:43] LABS: EOS # 0.1 K/uL (0.0-0.7); HEMOGLOBIN 8.5 g/dL (12.0-16.0); MEAN CORPUSCULAR HEMOGLOBIN 18.7 pg (27.0-31.0); NEUT # 3.7 K/uL (1.8-7.0); RBC 4.56 Mil/uL (3.80-5.20); RED CELL DISTRIBUTION WIDTH 20.1 % (11.5-14.5); WHITE BLOOD COUNT 5.7 K/uL (4.8-10.8)
[2018-09-29 09:49] LABS: BASO % 0.6 % (0.0-2.0); EOS % 1.2 % (0.0-4.0); LYMPH # 1.2 K/uL (1.0-4.3); LYMPH % 21.6 % (20.0-40.0); MEAN CELL VOLUME 63.5 fl (81.0-99.0); MEAN CORPUSCULAR HGB CONC 29.5 g/dL (33.0-37.0); MEAN PLATELET VOLUME 9.3 fl (7.2-11.7); MONO # 0.7 K/uL (0.0-0.8); MONO % 12.4 % (0.0-10.0); NEUT % 64.2 % (50.0-75.0)
[2018-09-29 10:06] LABS: BLOOD UREA NITROGEN 11 mg/dl (7-17); CALCIUM 9.2 mg/dL (8.4-10.2); GFR NON-AFRICAN AMERICAN > 60
[2018-09-29 10:08] LABS: ALB/GLOB RATIO 1.2 (1.0-2.1); ALBUMIN 4.6 g/dL (3.5-5.0); ALT/SGPT 15 U/L (9-52); AST/SGOT 54 U/L (14-36)
--- NOTE | 2018-09-29 10:41 | RAD ---
Date of service: 09/29/2018 HISTORY: Cough COMPARISON: Comparison chest dated 05/20/2009 TECHNIQUE: Chest PA and lateral views FINDINGS: LUNGS: No active pulmonary disease. PLEURA: No significant pleural effusion identified. No pneumothorax apparent. CARDIOVASCULAR: No aortic atherosclerotic calcification present. Normal cardiac size. No pulmonary vascular congestion. OSSEOUS STRUCTURES: No significant abnormalities. VISUALIZED UPPER ABDOMEN: Normal. OTHER FINDINGS: None. IMPRESSION: No active disease.
--- NOTE | 2018-09-29 13:10 | CT ---
Date of service: 09/29/2018 PROCEDURE: CT HEAD WITHOUT CONTRAST. HISTORY: Headache COMPARISON: Comparison made with CT scan brain 01/21/2016. TECHNIQUE: Axial computed tomography images were obtained through the head/brain without intravenous contrast. Radiation dose: Total exam DLP = 849.8 mGy-cm. This CT exam was performed using one or more of the following dose reduction techniques: Automated exposure control, adjustment of the mA and/or kV according to patient size, and/or use of iterative reconstruction technique. FINDINGS: HEMORRHAGE: No acute parenchymal, subarachnoid or extra-axial hemorrhage. BRAIN: No evidence of large acute infarct. No focal areas of abnormal attenuation seen within the substance of the brain. No obvious parenchymal nor extra-axial masses or collections seen on this noncontrast exam.. VENTRICLES: No obstructive hydrocephalus. CALVARIUM: Calvarium intact. PARANASAL SINUSES: Unremarkable as visualized. No significant inflammatory changes. MASTOID AIR CELLS: The frontal sinuses are atretic however the remaining visualized paranasal sinuses are well-developed. Minimal mucosal thickening seen in the right chamber sphenoid sinus. OTHER FINDINGS: None. IMPRESSION: No acute intracranial hemorrhage.
--- NOTE | 2018-09-29 13:39 | ED PDOC ---
- Laboratory Results Result Diagrams: 09/29/18 09:26 09/29/18 09:26 Lab Results: Total Bilirubin 0.6 mg/dl (0.2-1.3) 09/29/18 09:26 AST 54 U/L (14-36) H D 09/29/18 09:26 ALT 15 U/L (9-52) 09/29/18 09:26 Alkaline Phosphatase 57 U/L (38-126) 09/29/18 09:26 Total Protein 8.5 G/DL (6.3-8.2) H 09/29/18 09:26 Albumin 4.6 g/dL (3.5-5.0) 09/29/18 09:26 Globulin 3.9 gm/dL (2.2-3.9) 09/29/18 09:26 Albumin/Globulin Ratio 1.2 (1.0-2.1) 09/29/18 09:26 - ECG O2 Sat by Pulse Oximetry: 98 Disposition - Clinical Impression Clinical Impression: Anemia, Viral syndrome - POA Present On Arrival: None - Disposition Referrals: [facility] [Outside] Disposition: Routine/Home Disposition Time: 13:38 Condition: FAIR Prescriptions: Ferrous Sulfate 325 mg PO DAILY #30 tablet Instructions: Viral Syndrome (DC), Anemia Caused by Low Iron Forms: [employer] (Thai)
[2018-09-29 13:40] VITALS: BP 125/80; PULSE 75; TEMP 98.2
== END 2018-09-29 13:43 | disposition home or self-care (01) ==
LOC: H.ER 08:49
DX: B34.9 Viral infection, unspecified (principal); D64.9 Anemia, unspecified
CPT/HCPCS: 70450; 71046; 80053; 81025; 82550; 85025; 87804; 96360; 99285; J1885; J7030